=== PATIENT | female | born 1985 | race African-American/Black ===

== ENCOUNTER 2016-04-29 08:20 | Inpatient (IN) | payer MEDICAID ==
[~2016-04-29] VITALS: Ht 165.1 cm; Wt 84.2 kg
[2016-04-29] MEDS ORDERED: SODIUM CHLORIDE 0.9% 500 ML IVB ONE (11:22)
[2016-04-29] MEDS ORDERED: ONDANSETRON HCL 4 MG/2 ML VIAL IV ONE (11:30)
[2016-04-29] MEDS ORDERED: PANTOPRAZOLE SODIUM 40 MG/10 ML VIAL IV ONE (11:30)
[2016-04-29] MEDS ORDERED: HYDROmorphone HCL 2 MG/ML VL IV ONE (11:30)
[2016-04-29 12:04] LABS: Urine RBC None Seen /hpf (0 - 4)
[2016-04-29 12:29] LABS: Urine Bilirubin Negative (Negative); Urine Blood Negative /uL (Negative); Urine Color Yellow (Yellow); Urine Glucose Normal (Normal); Urine Ketone Negative (Negative); Urine Nitrite Negative (Negative); Urine Squamous Epithelial Cell FEW /hpf (<5); Urine Urobilinogen Normal (Negative)
[2016-04-29 12:50] LABS: Basophils # (auto) 0.1 uL; Eosinophils # (auto) 0.1 uL; Eosinophils % (auto) 1.5 % (0.0-7.0); Hematocrit 41.1 % (36.0-46.0); Lymphocytes # (auto) 2.3 uL; Lymphocytes % (auto) 34.2 % (10.0-50.0); Mean Corpuscular Hemoglobin 28.1 pg (28.0-32.0); Mean Corpuscular Hgb Conc. 31.6 g/dL (32.0-36.0); Mean Corpuscular Volume 88.9 fL (80.0-100.0); Monocytes # (auto) 0.3 uL; Monocytes % (auto) 4.7 % (0.0-12.0); Neutrophils # (auto) 3.9 uL; Neutrophils % (auto) 58.6 % (37.0-80.0); Platelet Count (auto) 258 10^3/uL (140-450); Red Cell Distribution Width 13.6 % (11.6-16.0); White Blood Cell 6.7 10^3/uL (4.4-10.8)
[2016-04-29 13:02] LABS: Bilirubin, Total 0.4 mg/dL (0.2-1.0); Magnesium 2.3 mg/dL (1.6-2.6); Total Protein 8.1 g/dL (6.4-8.2)
[2016-04-29] MEDS ORDERED: MORPHINE SULF INJ 2 MG/ML SYRINGE 1ML IV PRN (14:15)
[2016-04-29] MEDS ORDERED: NITROGLYCERIN 0.4 MG SL TAB SL PRN (14:15)
[2016-04-29] MEDS ORDERED: MORPHINE SULFATE 4 MG/ML SYRG IV PRN (14:15)
[2016-04-29] MEDS ORDERED: LORazepam 0.5 MG TAB PO PRN (14:15)
[2016-04-29] MEDS ORDERED: TEMAZEPAM 15 MG CAP PO PRN (14:15)
[2016-04-29] MEDS ORDERED: LEVOFLOXACIN 500MG 100 ML IV ONE (14:30)
[2016-04-29] MEDS: SODIUM CHLORIDE 0.9% 1,000 ML IV SCH ×2 (14:31→20:50)
[2016-04-29] MEDS: PROMETHAZINE HCL 25 MG/ML 1ML IV PRN (15:47)
[2016-04-29 18:24] VITALS: BP 107/51
[2016-04-29 20:00] VITALS: BP 109/63
[2016-04-29] MEDS: MORPHINE SULF INJ 2 MG/ML SYRINGE 1ML IV PRN (20:03)
[2016-04-29 22:00] VITALS: BP 109/63
[2016-04-29] MEDS: FAMOTIDINE (10MG/ML) 2ML VL IV SCH (22:02)
[2016-04-29] MEDS: metroNIDAZOLE 500MG/100ML 100 ML IV SCH (22:03)
[2016-04-30] MEDS: MORPHINE SULF INJ 2 MG/ML SYRINGE 1ML IV PRN ×4 (00:01→15:09)
[2016-04-30] MEDS: SODIUM CHLORIDE 0.9% 1,000 ML IV SCH ×2 (02:28→10:10)
[2016-04-30 05:00] VITALS: BP 92/54
[2016-04-30] MEDS: metroNIDAZOLE 500MG/100ML 100 ML IV SCH ×2 (05:38→14:39)
[2016-04-30 06:06] LABS: Basophils # (auto) 0 uL; Basophils % (auto) 0.5 % (0.0-2.0); Eosinophils # (auto) 0.1 uL; Eosinophils % (auto) 2.3 % (0.0-7.0); Hematocrit 31.8 % (36.0-46.0); Lymphocytes # (auto) 1.5 uL; Lymphocytes % (auto) 32.9 % (10.0-50.0); Mean Corpuscular Hemoglobin 28.2 pg (28.0-32.0); Mean Corpuscular Hgb Conc. 31.6 g/dL (32.0-36.0); Mean Corpuscular Volume 89.2 fL (80.0-100.0); Mean Platelet Volume 9.4 fL (7.4-10.4); Monocytes # (auto) 0.3 uL; Monocytes % (auto) 6.9 % (0.0-12.0); Neutrophils # (auto) 2.7 uL; Neutrophils % (auto) 57.4 % (37.0-80.0); Platelet Count (auto) 196 10^3/uL (140-450); Red Cell Distribution Width 13.5 % (11.6-16.0); White Blood Cell 4.6 10^3/uL (4.4-10.8)
[2016-04-30 07:06] LABS: Albumin 2.7 g/dL (3.4-5.0); BUN/Creatinine Ratio 11.5; Bilirubin, Total 0.3 mg/dL (0.2-1.0); Calcium 7.9 mg/dL (8.5-10.1); Potassium 3.8 mmol/L (3.5-5.1); Total Protein 5.7 g/dL (6.4-8.2)
[2016-04-30 08:00] VITALS: BP 106/64
[2016-04-30 09:00] VITALS: BP 106/64
[2016-04-30] MEDS ORDERED: LEVOFLOXACIN 500MG 100 ML IV SCH (10:00)
[2016-04-30] MEDS: FAMOTIDINE (10MG/ML) 2ML VL IV SCH (10:09)
[2016-04-30] MEDS: PROMETHAZINE HCL 25 MG/ML 1ML IV PRN (11:52)
[2016-04-30] MEDS ORDERED: ONDANSETRON HCL 4 MG/2 ML VIAL IV PRN (12:30)
[2016-04-30 13:00] VITALS: BP 102/65
[2016-04-30 15:35] VITALS: BP 106/64
[2016-04-30 17:00] VITALS: BP 111/79
== END 2016-04-30 17:45 | disposition home or self-care (01) | DRG 282 ==
LOC: ER 08:21 → TELE 08:22 → TELE-WESTW 16:59
PROVIDERS: ADMIT Internal Medicine; ATTEND Internal Medicine
DX: K85.90 Acute pancreatitis without necrosis or infection, unspecified (principal); Z87.19 Personal history of other diseases of the digestive system; Z82.49 Family history of ischemic heart disease and other diseases of the circulatory system; Z98.51 Tubal ligation status; Z83.3 Family history of diabetes mellitus; Z83.49 Family history of other endocrine, nutritional and metabolic diseases; Z83.2 Family history of diseases of the blood and blood-forming organs and certain disorders involving the immune mechanism
CPT/HCPCS: 36415; 76705; 80053; 80061; 81001; 81025; 82150; 83690; 83735; 85025; 94761; 96365; 96375; C9113; J1956; J2405; J3490

== ENCOUNTER 2018-03-23 07:59 | Emergency (ER) | payer MEDICAID ==
[~2018-03-23] VITALS: Ht 170.2 cm; Wt 70.8 kg
[2018-03-23 08:42] LABS: Urine Bacteria NONE SEEN /hpf (None Seen); Urine Blood 1+ /uL (Negative); Urine Mucus FEW (None Seen); Urine Specific Gravity 1.025 (1.001-1.035); Urine WBC 4 /hpf (0 - 5)
[2018-03-23] MEDS ORDERED: IOHEXOL 300 MG/ML 100ML BOTTLE IJ ONE (10:09)
[2018-03-23 10:14] LABS: Basophils # (auto) 0.1 uL; Basophils % (auto) 0.7 % (0.0-2.0); Eosinophils # (auto) 0 uL; Eosinophils % (auto) 0.4 % (0.0-7.0); Hematocrit 42.1 % (36.0-46.0); Hemoglobin 13.7 g/dL (12.2-16.2); Lymphocytes # (auto) 1.2 uL; Lymphocytes % (auto) 16.2 % (10.0-50.0); Mean Corpuscular Hemoglobin 29.8 pg (28.0-32.0); Mean Corpuscular Hgb Conc. 32.5 g/dL (32.0-36.0); Mean Corpuscular Volume 91.7 fL (80.0-100.0); Monocytes # (auto) 0.3 uL; Monocytes % (auto) 3.7 % (0.0-12.0); Nucleated Red Blood Cells % 0.1 %; Platelet Count (auto) 246 10^3/uL (140-450); White Blood Cell 7.6 10^3/uL (4.4-10.8)
[2018-03-23 10:30] LABS: Albumin 3.9 g/dL (3.4-5.0); Calcium 8.6 mg/dL (8.5-10.1); Potassium 4.3 mmol/L (3.5-5.1)
[2018-03-23 10:33] LABS: Bilirubin, Total 0.3 mg/dL (0.2-1.0); Total Protein 8.5 g/dL (6.4-8.2)
[2018-03-23 12:09] VITALS: BP 123/81
== END 2018-03-23 12:12 | disposition home or self-care (01) ==
LOC: ER 07:59
DX: N39.0 Urinary tract infection, site not specified (principal)
CPT/HCPCS: 36415; 74177; 80053; 81001; 81025; 82150; 83690; 84702; 85025; 99284; Q9967

== ENCOUNTER → 2019-09-07 | Emergency (ER) | payer SELFPAY ==
[~2019-09-07] VITALS: Ht 170.2 cm; Wt 72.6 kg
[~2019-09-07] MED LIST: KETOROLAC TROMETH 60MG/2ML VIAL IM ONE
[2019-09-07 19:15] VITALS: BP 140/108
== END | disposition home or self-care (01) ==
LOC: ER 18:52
DX: M54.2 Cervicalgia (principal); M25.511 Pain in right shoulder; M25.512 Pain in left shoulder; Y08.89XA Assault by other specified means, initial encounter; Y93.89 Activity, other specified; Y92.89 Other specified places as the place of occurrence of the external cause; Y99.8 Other external cause status
CPT/HCPCS: 72040; 96372; 99283; J1885

== ENCOUNTER 2020-12-25 11:18 | Inpatient (IN) | payer BC ==
[~2020-12-25] VITALS: Ht 170.2 cm; Wt 83.5 kg
[2020-12-25] MEDS ORDERED: PANTOPRAZOLE 40 MG/10 ML VIAL INJ IV ONE (11:30)
[2020-12-25] MEDS ORDERED: ONDANSETRON HCL 4 MG/2 ML VIAL IV ONE ×2 (11:30→22:15)
[2020-12-25] MEDS ORDERED: MORPHINE SULFATE 4 MG/ML SYR/VIAL IV ONE (11:30)
[2020-12-25] MEDS ORDERED: SODIUM CHLORIDE 0.9% 1,000 ML IVB ONE (11:30)
[2020-12-25 11:56] LABS: Basophils # (auto) 0.1 10 ^3/uL (0-0.2); Basophils % (auto) 0.8 % (0.0-2.0); Eosinophils # (auto) 0.2 10 ^3/uL (0-0.8); Eosinophils % (auto) 3.3 % (0.0-7.0); Hematocrit 37.4 % (36.0-46.0); Hemoglobin 12.3 g/dL (12.2-16.2); Lymphocytes # (auto) 1.9 10 ^3/uL (0.4-5.4); Lymphocytes % (auto) 30.4 % (10.0-50.0); Mean Corpuscular Hemoglobin 30.7 pg (28.0-32.0); Mean Corpuscular Hgb Conc. 32.9 g/dL (32.0-36.0); Mean Corpuscular Volume 93.3 fL (80.0-100.0); Monocytes # (auto) 0.3 10 ^3/uL (0-1.3); Monocytes % (auto) 5.2 % (0.0-12.0); Neutrophils # (auto) 3.8 10 ^3/uL (1.6-8.6); Neutrophils % (auto) 60.3 % (37.0-80.0); Red Blood Cells 4.01 10^6/uL (4.0-5.20); Red Cell Distribution Width 14.3 % (11.8-14.3); White Blood Cell 6.2 10^3/uL (4.4-10.8)
[2020-12-25 13:08] LABS: Potassium 3.8 mmol/L (3.5-5.1)
[2020-12-25 13:13] LABS: BUN/Creatinine Ratio 15.1
[2020-12-25 13:14] LABS: Albumin 3.7 g/dL (3.4-5.0); Bilirubin, Total 0.3 mg/dL (0.2-1.0); Calcium 9.2 mg/dL (8.5-10.1); Total Protein 7.5 g/dL (6.4-8.2)
[2020-12-25 13:58] LABS: Urine Bacteria NONE SEEN /hpf (None Seen); Urine Blood 1+ /uL (Negative); Urine Mucus FEW (None Seen); Urine Specific Gravity 1.024 (1.001-1.035); Urine WBC 1 /hpf (0 - 5)
[2020-12-25] MEDS ORDERED: MORPHINE SULFATE 4 MG/ML SYR/VIAL IV STA (22:04)
[2020-12-25] MEDS ORDERED: ONDANSETRON HCL 4 MG/2 ML VIAL ONE (22:18)
[2020-12-25] MEDS ORDERED: MORPHINE SULFATE 4 MG/ML SYR/VIAL ONE (22:19)
[2020-12-25] MEDS ORDERED: D5W/SOD CHL 0.45% 1,000 ML IV ONE (22:45)
[2020-12-25] MEDS ORDERED: SODIUM CHLORIDE 0.9% 1,000 ML IV SCH (22:45)
[2020-12-25] MEDS ORDERED: MORPHINE SULFATE 4 MG/ML SYR/VIAL IV PRN (22:45)
[2020-12-25] MEDS ORDERED: ACETAMINOPHEN 325 MG TAB PO PRN (22:45)
[2020-12-25] MEDS ORDERED: D5W/SOD CHL 0.45% 1,000 ML IV SCH (23:45)
[2020-12-25] MEDS ORDERED: NITROGLYCERIN 0.4 MG SL TAB SL PRN (23:45)
[2020-12-25] MEDS ORDERED: MORPHINE SULFATE INJECTION 2 MG/ML SYRG IV PRN (23:45)
[2020-12-26] MEDS ORDERED: diphenhdrAMINE HCL 50 MG/1 ML VL IV PRN (00:15)
[2020-12-26] MEDS ORDERED: diphenhdrAMINE HCL 50 MG/1 ML VL ONE (00:30)
[2020-12-26 02:09] VITALS: BP 130/85
[2020-12-26] MEDS ORDERED: DIPH25CA29 PO (02:21)
[2020-12-26] MEDS: HYDROmorphone HCL 2 MG/ML VL IV PRN ×4 (03:34→21:23)
[2020-12-26 05:17] VITALS: BP 113/70
[2020-12-26 06:59] LABS: Basophils # (auto) 0 10 ^3/uL (0-0.2); Basophils % (auto) 0.7 % (0.0-2.0); Eosinophils # (auto) 0.2 10 ^3/uL (0-0.8); Eosinophils % (auto) 3.6 % (0.0-7.0); Hemoglobin 10.8 g/dL (12.2-16.2); Lymphocytes # (auto) 2.4 10 ^3/uL (0.4-5.4); Lymphocytes % (auto) 40.6 % (10.0-50.0); Mean Corpuscular Hemoglobin 30.9 pg (28.0-32.0); Mean Corpuscular Hgb Conc. 32.8 g/dL (32.0-36.0); Mean Corpuscular Volume 94.1 fL (80.0-100.0); Monocytes # (auto) 0.4 10 ^3/uL (0-1.3); Monocytes % (auto) 7.3 % (0.0-12.0); Neutrophils # (auto) 2.9 10 ^3/uL (1.6-8.6); Neutrophils % (auto) 47.8 % (37.0-80.0); Nucleated Red Blood Cells % 0.1 %; Red Blood Cells 3.51 10^6/uL (4.0-5.20); Red Cell Distribution Width 14.6 % (11.8-14.3)
[2020-12-26 07:10] LABS: Calcium 8.1 mg/dL (8.5-10.1); Potassium 3.6 mmol/L (3.5-5.1)
[2020-12-26 07:16] LABS: Albumin 3.1 g/dL (3.4-5.0); Bilirubin, Total 0.5 mg/dL (0.2-1.0); Total Protein 6.3 g/dL (6.4-8.2)
[2020-12-26 09:00] VITALS: BP 118/79
[2020-12-26] MEDS: FAMOTIDINE (10MG/ML) 2ML VL IV SCH ×2 (09:50→22:07)
[2020-12-26] MEDS ORDERED: D5W/SOD CHL 0.45% 1,000 ML IV SCH (10:45)
[2020-12-26 11:36] LABS: INR 1.18 (0.9-1.15); Partial Thromboplastin Time 24.3 sec (23.6-33.0)
[2020-12-26 11:47] VITALS: BP 151/91
[2020-12-26] MEDS: D5W/SOD CHL 0.45%/KCL 20MEQ 1,000 ML IV SCH (12:05)
[2020-12-26] MEDS: ONDANSETRON HCL 4 MG/2 ML VIAL IV PRN ×2 (14:55→21:23)
[2020-12-26 17:09] VITALS: BP 110/74
[2020-12-26 22:00] VITALS: BP 131/90
[2020-12-27] MEDS: D5W/SOD CHL 0.45%/KCL 20MEQ 1,000 ML IV SCH ×4 (00:36→20:13)
[2020-12-27] MEDS: ONDANSETRON HCL 4 MG/2 ML VIAL IV PRN ×5 (02:00→22:32)
[2020-12-27] MEDS: HYDROmorphone HCL 2 MG/ML VL IV PRN ×5 (02:00→22:32)
[2020-12-27 04:54] VITALS: BP 137/98
[2020-12-27 07:46] LABS: Basophils # (auto) 0 10 ^3/uL (0-0.2); Basophils % (auto) 0.6 % (0.0-2.0); Eosinophils # (auto) 0.2 10 ^3/uL (0-0.8); Eosinophils % (auto) 4.8 % (0.0-7.0); Hematocrit 34.4 % (36.0-46.0); Hemoglobin 11.4 g/dL (12.2-16.2); Lymphocytes # (auto) 1.9 10 ^3/uL (0.4-5.4); Lymphocytes % (auto) 44.5 % (10.0-50.0); Mean Corpuscular Hemoglobin 31.4 pg (28.0-32.0); Mean Corpuscular Hgb Conc. 33.1 g/dL (32.0-36.0); Mean Corpuscular Volume 94.8 fL (80.0-100.0); Monocytes # (auto) 0.3 10 ^3/uL (0-1.3); Monocytes % (auto) 7.4 % (0.0-12.0); Neutrophils # (auto) 1.8 10 ^3/uL (1.6-8.6); Neutrophils % (auto) 42.7 % (37.0-80.0); Nucleated Red Blood Cells % 0.3 %; Red Blood Cells 3.62 10^6/uL (4.0-5.20); Red Cell Distribution Width 14.5 % (11.8-14.3); White Blood Cell 4.2 10^3/uL (4.4-10.8)
[2020-12-27 07:56] LABS: Albumin 3.2 g/dL (3.4-5.0); Calcium 8.4 mg/dL (8.5-10.1); Potassium 3.5 mmol/L (3.5-5.1)
[2020-12-27 07:59] LABS: BUN/Creatinine Ratio 6.3
[2020-12-27 08:01] LABS: Bilirubin, Total 0.4 mg/dL (0.2-1.0); Total Protein 6.7 g/dL (6.4-8.2)
[2020-12-27 09:04] VITALS: BP 138/92
[2020-12-27] MEDS ORDERED: SODIUM CHLORIDE LOCK 10 ML ONE (09:38)
[2020-12-27] MEDS ORDERED: diphenhdrAMINE HCL 50 MG/1 ML VL ONE (09:38)
[2020-12-27] MEDS ORDERED: LIDOCAINE VISCOUS 2% 15ML UD ONE (09:38)
[2020-12-27] MEDS: PANTOPRAZOLE 40 MG TAB PO SCH (10:00)
[2020-12-27] MEDS: FAMOTIDINE (10MG/ML) 2ML VL IV SCH ×2 (10:00→22:31)
[2020-12-27] MEDS: MIDAZOLAM HCL 5 MG/ML-1ML VIAL ONE ×3 (12:54→13:01)
[2020-12-27] MEDS: fentaNYL CITRATE 100 MCG/2 ML VL ONE ×2 (12:54→12:58)
[2020-12-27] MEDS ORDERED: MIDAZOLAM HCL 5 MG/ML-1ML VIAL ONE (13:06)
[2020-12-27 17:06] VITALS: BP 135/87
[2020-12-27] MEDS: SUCRALFATE 1 GM/10 ML ORAL SUSP PO SCH ×2 (17:26→22:31)
[2020-12-27 22:00] VITALS: BP 136/92
[2020-12-28] MEDS: D5W/SOD CHL 0.45%/KCL 20MEQ 1,000 ML IV SCH ×2 (04:40→13:15)
[2020-12-28 05:00] VITALS: BP 120/88
[2020-12-28] MEDS: HYDROmorphone HCL 2 MG/ML VL IV PRN ×3 (05:26→20:02)
[2020-12-28] MEDS: ONDANSETRON HCL 4 MG/2 ML VIAL IV PRN ×3 (05:26→14:45)
[2020-12-28 05:32] VITALS: BP 120/88
[2020-12-28] MEDS: SUCRALFATE 1 GM/10 ML ORAL SUSP PO SCH ×4 (06:34→23:27)
[2020-12-28 07:33] LABS: Potassium 3.8 mmol/L (3.5-5.1)
[2020-12-28 07:35] LABS: INR 1.12 (0.9-1.15); Partial Thromboplastin Time 23.9 sec (23.6-33.0)
[2020-12-28 07:37] LABS: Basophils # (auto) 0 10 ^3/uL (0-0.2); Basophils % (auto) 0.5 % (0.0-2.0); Eosinophils # (auto) 0.2 10 ^3/uL (0-0.8); Eosinophils % (auto) 4.8 % (0.0-7.0); Hemoglobin 10.8 g/dL (12.2-16.2); Lymphocytes # (auto) 1.6 10 ^3/uL (0.4-5.4); Lymphocytes % (auto) 31.5 % (10.0-50.0); Mean Corpuscular Hemoglobin 31.8 pg (28.0-32.0); Mean Corpuscular Hgb Conc. 33.7 g/dL (32.0-36.0); Mean Corpuscular Volume 94.4 fL (80.0-100.0); Monocytes # (auto) 0.4 10 ^3/uL (0-1.3); Monocytes % (auto) 7.1 % (0.0-12.0); Neutrophils # (auto) 2.8 10 ^3/uL (1.6-8.6); Neutrophils % (auto) 56.1 % (37.0-80.0); Nucleated Red Blood Cells % 0.2 %; Red Blood Cells 3.39 10^6/uL (4.0-5.20); Red Cell Distribution Width 14.1 % (11.8-14.3)
[2020-12-28 07:39] LABS: BUN/Creatinine Ratio 3.9; Bilirubin, Total 0.3 mg/dL (0.2-1.0); Calcium 8.2 mg/dL (8.5-10.1); Magnesium 2.4 mg/dL (1.6-2.6); Total Protein 6.1 g/dL (6.4-8.2)
[2020-12-28] MEDS: FAMOTIDINE (10MG/ML) 2ML VL IV SCH ×2 (08:43→23:27)
[2020-12-28] MEDS: PANTOPRAZOLE 40 MG TAB PO SCH (08:48)
[2020-12-28 09:00] VITALS: BP 129/88
[2020-12-28] MEDS ORDERED: METOCLOPRAMIDE HCL 5MG/ml INJ 2ml VIAL IV PRN (09:00)
[2020-12-28] MEDS ORDERED: BUPIVACAINE W/ EPINEPH 0.25% INJ 50ML MDV ONE (09:02)
[2020-12-28] MEDS ORDERED: fentaNYL CITRATE 100 MCG/2 ML VL ONE (09:08)
[2020-12-28] MEDS ORDERED: MEPERIDINE HCL (25 MG/ML) 1ML VIAL ONE (09:08)
[2020-12-28] MEDS ORDERED: MIDAZOLAM HCL 2MG/2ML 2ml VIAL (1mg/ml) ONE (09:09)
[2020-12-28] MEDS ORDERED: SODIUM CHLORIDE LOCK 20 ML ONE (09:09)
[2020-12-28] MEDS ORDERED: ROCURONIUM 10MG/ML 10ML VIAL IV ONE (09:09)
[2020-12-28] MEDS ORDERED: NEOSTIGMINE 1 MG/ML INJ (10mg/10ML VIAL) ONE (09:09)
[2020-12-28] MEDS ORDERED: PROPOFOL 10 MG/ML 20 ML IV ONE (09:09)
[2020-12-28] MEDS ORDERED: ONDANSETRON HCL 4 MG/2 ML VIAL ONE (09:09)
[2020-12-28] MEDS ORDERED: GLYCOPYRROLATE 0.2 MG/ML 1ML VIAL ONE (09:09)
[2020-12-28] MEDS ORDERED: LIDOCAINE 2% (LOCAL ANESTH.) PF 5ml SDV ONE (09:10)
[2020-12-28] MEDS ORDERED: ceFAZolin 1GM/50ML 100 ML IV ONE (09:33)
[2020-12-28] MEDS ORDERED: SUCCINYLCHOLINE CHLORIDE 20 MG/ML 10ML VIAL IV ONE (09:42)
[2020-12-28] MEDS ORDERED: DexAMETHasone SOD PHOS 10MG/1ML VIAL INJ ONE (10:09)
[2020-12-28] MEDS ORDERED: KETOROLAC TROMETH 60MG/2ML VIAL ONE (10:47)
[2020-12-28] MEDS ORDERED: ACETAMINOPHEN IV 1000 MG/100ML (10MG/ML) IV ONE (11:30)
[2020-12-28] MEDS ORDERED: ACETAMINOPHEN IV 100 ML IV ONE (11:32)
[2020-12-28 13:00] VITALS: BP 118/82
[2020-12-28] MEDS: HYDROcodone-ACET 5/325MG TAB PO PRN (14:45)
[2020-12-28 17:00] VITALS: BP 113/72
[2020-12-28] MEDS ORDERED: HYDROmorphone HCL 2 MG/ML VL IV PRN (17:45)
[2020-12-28 22:00] VITALS: BP 126/81
[2020-12-29] MEDS: HYDROmorphone HCL 2 MG/ML VL IV PRN ×2 (00:39→07:27)
[2020-12-29 05:00] VITALS: BP 117/83
[2020-12-29 05:35] LABS: Basophils # (auto) 0 10 ^3/uL (0-0.2); Basophils % (auto) 0.2 % (0.0-2.0); Eosinophils # (auto) 0 10 ^3/uL (0-0.8); Eosinophils % (auto) 0.4 % (0.0-7.0); Hematocrit 31.5 % (36.0-46.0); Hemoglobin 10.4 g/dL (12.2-16.2); Lymphocytes # (auto) 1.6 10 ^3/uL (0.4-5.4); Lymphocytes % (auto) 20.4 % (10.0-50.0); Mean Corpuscular Volume 93.8 fL (80.0-100.0); Monocytes # (auto) 0.6 10 ^3/uL (0-1.3); Monocytes % (auto) 7.9 % (0.0-12.0); Neutrophils # (auto) 5.5 10 ^3/uL (1.6-8.6); Neutrophils % (auto) 71.1 % (37.0-80.0); Nucleated Red Blood Cells % 0.1 %; Red Blood Cells 3.36 10^6/uL (4.0-5.20); White Blood Cell 7.7 10^3/uL (4.4-10.8)
[2020-12-29 06:10] LABS: Calcium 8.2 mg/dL (8.5-10.1); Potassium 3.6 mmol/L (3.5-5.1)
[2020-12-29 06:16] LABS: BUN/Creatinine Ratio 3.9; Bilirubin, Total 0.3 mg/dL (0.2-1.0); Total Protein 6.1 g/dL (6.4-8.2)
[2020-12-29] MEDS: SUCRALFATE 1 GM/10 ML ORAL SUSP PO SCH ×2 (06:52→13:13)
[2020-12-29] MEDS: ONDANSETRON HCL 4 MG/2 ML VIAL IV PRN (07:26)
[2020-12-29] MEDS: FAMOTIDINE (10MG/ML) 2ML VL IV SCH (08:32)
[2020-12-29] MEDS: PANTOPRAZOLE 40 MG TAB PO SCH (08:32)
[2020-12-29 08:40] VITALS: BP 135/105
[2020-12-29] MEDS ORDERED: D5W/SOD CHL 0.45%/KCL 20MEQ 1,000 ML IV SCH (10:00)
[2020-12-29 12:30] VITALS: BP 138/91
[2020-12-29] MEDS: HYDROcodone-ACET 5/325MG TAB PO PRN (13:12)
== END 2020-12-29 16:25 | disposition home or self-care (01) | DRG 418 ==
LOC: ER 11:18 → OVERFLOW 23:45 → CENTRAL 12-26 01:42
PROVIDERS: ADMIT Nurse Practitioner Family; ATTEND Internal Medicine
PROC: 0DB98ZX Excision of Duodenum, Via Natural or Artificial Opening Endoscopic, Diagnostic (ICD-10-PCS; 2020-12-27)
PROC: 0DB68ZX Excision of Stomach, Via Natural or Artificial Opening Endoscopic, Diagnostic (ICD-10-PCS; 2020-12-27)
PROC: 0FT44ZZ Resection of Gallbladder, Percutaneous Endoscopic Approach (ICD-10-PCS; principal; 2020-12-28 09:52)
DX: K80.00 Calculus of gallbladder with acute cholecystitis without obstruction (principal); K22.10 Ulcer of esophagus without bleeding; K86.1 Other chronic pancreatitis; K29.90 Gastroduodenitis, unspecified, without bleeding; D64.9 Anemia, unspecified; E66.9 Obesity, unspecified; K76.0 Fatty (change of) liver, not elsewhere classified; G89.29 Other chronic pain; R68.89 Other general symptoms and signs; Z20.822 Contact with and (suspected) exposure to COVID-19; K26.9 Duodenal ulcer, unspecified as acute or chronic, without hemorrhage or perforation; K44.9 Diaphragmatic hernia without obstruction or gangrene; Z82.49 Family history of ischemic heart disease and other diseases of the circulatory system; Z80.9 Family history of malignant neoplasm, unspecified; Z88.5 Allergy status to narcotic agent; Z87.19 Personal history of other diseases of the digestive system; Z68.28 Body mass index [BMI] 28.0-28.9, adult
CPT/HCPCS: 36415; 43239; 76705; 80053; 81001; 82150; 83690; 83735; 84100; 84702; 85025; 85610; 85730; 86850; 86900; 86901; 87426; 96361; 96374; 96375; 96376; C9113; G0378; J0131; J0330; J0690; J1100; J1885; J2001; J2250; J2405; J2704; J3490

== ENCOUNTER 2021-09-01 06:47 | Emergency (ER) | payer BC ==
[~2021-09-01] VITALS: Ht 170.2 cm; Wt 59.0 kg
[~2021-09-01 06:47] MED LIST changes: +DIPH25CA29 PO; -KETOROLAC TROMETH 60MG/2ML VIAL IM ONE
[2021-09-01 06:58] VITALS: BP 150/103
[2021-09-01] MEDS ORDERED: SODIUM CHLORIDE 0.9% 1,000 ML IV ONE (07:30)
[2021-09-01] MEDS ORDERED: KETOROLAC TROMETH 30 MG/ML 1ML VIAL IV ONE (07:45)
[2021-09-01 07:47] LABS: Basophils # (auto) 0 10 ^3/uL (0-0.2); Basophils % (auto) 0.7 % (0.0-2.0); Eosinophils # (auto) 0.2 10 ^3/uL (0-0.8); Eosinophils % (auto) 3.2 % (0.0-7.0); Hematocrit 34.1 % (36.0-46.0); Hemoglobin 11.4 g/dL (12.2-16.2); Mean Corpuscular Hemoglobin 29.6 pg (28.0-32.0); Mean Corpuscular Hgb Conc. 33.2 g/dL (32.0-36.0); Mean Corpuscular Volume 89.2 fL (80.0-100.0); Monocytes # (auto) 0.4 10 ^3/uL (0-1.3); Monocytes % (auto) 6.5 % (0.0-12.0); Neutrophils % (auto) 53.6 % (37.0-80.0); Nucleated Red Blood Cells % 0.1 %; Red Blood Cells 3.83 10^6/uL (4.0-5.20); Red Cell Distribution Width 14.1 % (11.8-14.3); White Blood Cell 5.6 10^3/uL (4.4-10.8)
[2021-09-01 08:05] LABS: Urine Bacteria NONE SEEN /hpf (None Seen); Urine Blood Negative /uL (Negative); Urine Specific Gravity 1.012 (1.001-1.035); Urine WBC <1 /hpf (0 - 5)
[2021-09-01 08:05] LABS: Albumin 3.3 g/dL (3.4-5.0); Calcium 8.5 mg/dL (8.5-10.1); Magnesium 2.5 mg/dL (1.6-2.6); Potassium 3.8 mmol/L (3.5-5.1)
[2021-09-01 08:08] LABS: BUN/Creatinine Ratio 11.6; Bilirubin, Total 0.2 mg/dL (0.2-1.0); Total Protein 6.7 g/dL (6.4-8.2)
[2021-09-01] MEDS ORDERED: TRAM-297 PO (09:18)
== END 2021-09-01 09:43 | disposition home or self-care (01) ==
LOC: ER 06:47
DX: N83.201 Unspecified ovarian cyst, right side (principal); N83.202 Unspecified ovarian cyst, left side; K42.9 Umbilical hernia without obstruction or gangrene; Z98.51 Tubal ligation status; Z90.49 Acquired absence of other specified parts of digestive tract; Z88.6 Allergy status to analgesic agent
CPT/HCPCS: 36415; 74176; 80053; 81001; 83605; 83690; 83735; 85025; 96361; 96374; 99284; J1885; J7030

== ENCOUNTER 2022-05-20 08:13 | Emergency (ER) | payer BC, MEDICAID ==
[~2022-05-20] VITALS: Ht 170.2 cm; Wt 165.0 kg
[~2022-05-20 08:13] MED LIST changes: +TRAM-297 PO
[2022-05-20 08:30] VITALS: BP 148/94
[2022-05-20] MEDS ORDERED: cefTRIAXone SOD 1,000 MG VL IM ONE (09:15)
[2022-05-20] MEDS ORDERED: HYDROcodone-ACET 5/325MG TAB PO ONE (09:15)
[2022-05-20] MEDS ORDERED: TRAM-297 PO (09:42)
== END 2022-05-20 09:45 | disposition home or self-care (01) ==
LOC: ER 08:13
DX: Q18.1 Preauricular sinus and cyst (principal); H66.91 Otitis media, unspecified, right ear; Z88.6 Allergy status to analgesic agent; Z90.49 Acquired absence of other specified parts of digestive tract; Z98.890 Other specified postprocedural states
CPT/HCPCS: 96372; 99283; J0696